=== PATIENT | female | born 1985 | race Caucasian/White ===

== ENCOUNTER 2023-08-20 20:43 | Emergency (ER) | payer OTHER, SELFPAY ==
[2023-08-20 21:04] VITALS: BP 138/98; PULSE 98; RESP 16; TEMP 36.6; O2SAT 99
[2023-08-20 21:25] LABS: Basophils Percent Auto 0.4 % (0.2-1.2); Hematocrit 41.5 % (37.0-47.0); Hemoglobin 13.3 g/dL (12.0-15.0); Immature Granulocyte Absolute 0.03 K/mm3 (0.00-0.031); Immature Granulocyte Percent A 0.3 % (0-0.5); Lymphocytes Absolute Auto 1.42 K/mm3 (0.9-3.2); Lymphocytes Percent Auto 12.5 % (18.3-44.2); Mean Corpuscular Hemoglobin 29.4 pg (26-34); Mean Corpuscular Volume 91.6 fl (80-100); Mean Platelet Volume 10.4 fl (7.4-10.4); Monocytes Absolute Auto 0.5 K/mm3 (0.1-0.6); Monocytes Percent Auto 4.2 % (2.6-8.5); Neutrophils Absolute Auto 9.4 K/mm3 (1.3-6.7); Neutrophils Percent Auto 82.6 % (45.5-73.1); Platelet Count Result 314 k/mm3 (150-375); Red Blood Count 4.53 M/mm3 (4.2-5.4); White Blood Count 11.3 K/mm3 (4.5-10.0)
[2023-08-20 21:39] LABS: Alanine Aminotransferase 22 U/L (6-35); Albumin Level 4.3 g/dL (3.5-5.1); Alkaline Phosphatase 105 U/L (38-126); Anion Gap 10 mmol/L (8-16); Aspartate Amino Transferase 23 U/L (14-36); Bilirubin,Total 0.5 mg/dL (0.2-1.3); Blood Urea Nitrogen 11 mg/dL (7-17); Calcium 9.1 mg/dL (8.4-10.2); Carbon Dioxide 20 mmol/L (22-30); Chloride 109 mmol/L (98-107); Estimated CRCL calculation 128 ml/min; Estimated Glomerular Filt Rate > 60; Glucose 104 mg/dL (65-110); Lipase 47 U/L (23-300); Potassium 3.7 mmol/L (3.4-5.0); Sodium 139 mmol/L (137-145)
[2023-08-20 23:14] VITALS: BP 148/93; PULSE 70; O2SAT 100
[2023-08-20 23:34] LABS: Appearance Urine Cloudy (Clear); Bacteria Urine Rare /hpf; Bilirubin Urine Negative (Negative); Blood Urine 2+ (Negative); Color Urine Yellow (Yellow); Glucose Urine UA Negative (Negative); Ketones Urine Negative (Negative); Leukocyte Esterase Ur Negative LEU/UL (Negative); Nitrate Urine Negative (Negative); Non Pathogenic Casts 0-2; Protein Urine Negative (Negative); RBC Urine 0-2 /hpf (0-2); Specific Grav Ur 1.022 (1.001-1.035); Squamous Epithelial Cell Urine Moderate /hpf (Few); Urobilinogen Urine 0.2 mg/dL (<2.0)
[2023-08-20 23:43] LABS: Add Urine Microscopic? YES
[2023-08-21 00:53] LABS: Pregnancy On Board Control Positive; Urine Pregnancy Test Negative
[2023-08-21] MEDS: diphenhydrAMINE HCl INJ 50 MG/ML VIAL 25 MG IV PUSH (01:08)
[2023-08-21] MEDS: KETOROLAC 30 MG/ML VIAL (*BKC) IV PUSH (01:08)
[2023-08-21] MEDS: PROCHLORPERAZINE EDISYLATE 10 MG/2 ML VIAL IV PUSH (01:08)
[2023-08-21] MEDS: SODIUM CHLORIDE 0.9% IV 1,000 ML 999 ML IV CONT (01:08)
--- NOTE | 2023-08-21 02:07 | ED.NAVMDI ---
HPI - Nausea/Vomiting/Diarrhea General Chief complaint: Nausea/Vomiting/Diarrhea Stated complaint: vomiting Time Seen by Provider: 08/21/23 00:06 History of Present Illness HPI Narrative: 38-year-old female reports for evaluation for migraine and vomiting since yesterday morning. Patient states she is having difficulty keeping any food or fluids down. She reports a history of migraines and states this headache is unchanged from her prior headaches. States her headache is all over describes as a dull ache. She denies vision changes, focal numbness or weakness, head trauma or syncope. She denies abdominal pain, urinary complaints, diarrhea, melena hematochezia, hematemesis, chest pain or shortness of breath. She does endorse generalized body aches. She is currently on her period, she started 3 days ago. Denies urinary frequency, urgency or dysuria. Related Data Allergies Allergy/AdvReac Type Severity Reaction Status Date / Time cephalexin Allergy Unknown unknown Verified 08/21/23 00:12 sulfamethizole Allergy Unknown unknown Verified 08/21/23 00:12 sulfamethoxazole Allergy Unknown Hives / Verified 08/21/23 00:12 Red Face trimethoprim Allergy Unknown unknown Verified 08/21/23 00:12 Review of Systems Review of Systems: CONSTITUTIONAL: Denies fever, chills, or sweats. EYES: Denies visual changes, redness, or discharge. ENT: Denies rhinorrhea, congestion, sore throat, or otalgia. CARDIOVASCULAR: Denies chest pain, palpitations, or edema. RESPIRATORY: Denies cough or dyspnea. GASTROINTESTINAL: See HPI GENITOURINARY: Denies dysuria or hematuria. SKIN: Denies rash or itching. MUSCULOSKELETAL: Denies back pain, joint pain, or myalgia. NEUROLOGIC: See HPI PSYCHIATRIC: Denies anxiety or depression. PMFSH Family History Family History Other Depression Family history of mental disorder Social History Social History Smoking status: Never smoker Exam Narrative: GENERAL: Well-appearing, well-nourished, and in no acute distress. Patient resting comfortably in exam bed. She is pleasant and conversational. HEAD: Normocephalic, atraumatic. EYES: PERRLA and EOMI. Horizontal resting nystagmus which patient states has been present since she was born. ENT: Nares clear, no rhinorrhea or epistaxis. Mucous membranes moist. Bilateral TMs are no nonbulging. Posterior pharynx without erythema or edema. No tonsillar hypertrophy. Uvula midline. NECK: Supple. No nuchal rigidity. CHEST: Clear to auscultation. No respiratory distress. HEART: Regular rate and rhythm. No murmur heard. Normal peripheral pulses. ABDOMEN: Soft, nontender, nondistended, normal active bowel sounds. No CVA tenderness. No guarding, rebound or rigidity. EXTREMITIES: Normal range of motion. No edema. SKIN: Warm, dry, no rash. NEURO: No focal deficits. Alert and oriented x3. Cranial nerves 2-12 intact. Strength 5/5 in BUE and BLE. Sensation intact throughout. Normal [id number]. No pronator drift. Course Vital Signs Vital signs: Vital Signs Temperature 97.9 F 08/20/23 21:04 Pulse Rate 98 08/20/23 21:04 Respiratory Rate 16 08/20/23 21:04 Blood Pressure 138/98 H 08/20/23 21:04 Pulse Oximetry 99 08/20/23 21:04 Oxygen Delivery Room Air 08/20/23 21:04 Temperature 97.9 F 08/20/23 21:04 Pulse Rate 70 08/20/23 23:14 Respiratory Rate 16 08/20/23 21:04 Blood Pressure 148/93 H 08/20/23 23:14 Pulse Oximetry 100 08/20/23 23:14 Oxygen Delivery Room Air 08/20/23 21:04 MDM - Nausea/Vomiting/Diarrhea MDM Narrative Medical decision making narrative: 38-year-old female with a history of migraines reports for evaluation for migraine headache and vomiting since this morning. See HPI for further history. Vitals significant for elevated blood pressure, otherwise unremarkable. She is well appearin
== END 2023-08-21 02:32 | disposition home or self-care (01) ==
PROVIDERS: Emergency Medicine; Emergency Provider Physician Assistant; PCP Family Medicine
DX: R51.9 Headache, unspecified (principal); R11.2 Nausea with vomiting, unspecified
CPT/HCPCS: 36415; 80053; 81001; 81025; 83690; 85025; 87086; 87088; 96361; 96374; 96375; 99284; J0780; J1200; J1885; J7030

== ENCOUNTER 2023-12-09 12:38 | Outpatient (CLI) | payer OTHER, SELFPAY ==
--- NOTE | ~2023-12-09 | XR_ITS ---
EXAMINATION: XR_[id number]_CR DATE: 12/09/2023 13:07 INDICATION: Neck pain. TECHNIQUE: 4 views of cervical spine were obtained. COMPARISON: None. FINDINGS: There is mild kyphosis of cervical spine. There is 5 degrees levocurvature of cervical spin e. Vertebral body heights and intervertebral disc heights are normal. There are endplate osteophytes at C5-C6. There is multilevel mild facet joint osteoarthritis. No central canal stenosis or preverteb ral soft tissue swelling. IMPRESSION: 1. Mild cervical spondylosis. Reviewed, dictated and finalized at location E. GER OF INTERNAL
--- NOTE | ~2023-12-09 | XR_ITS ---
EXAMINATION: XR lumbar spine 2-3V DATE: 12/09/2023 13:07 INDICATION: Lumbar disc herniation TECHNIQUE: Anteroposterior and lateral views of the lumbar spine, and cone-down lateral view of the l umbosacral junction were obtained. COMPARISON: None. FINDINGS: Bone alignment is normal. There is no fracture. There is mild loss of intervertebral disc s pace height at L2-3, L4-5, and L5-S1. The vertebral body heights are maintained. Small degenerative o steophytes project from the anterior endplates of multiple vertebral bodies. There is mild facet join t osteoarthritis at L5-S1. IMPRESSION: 1. Mild lumbar spondylosis without acute findings. Reviewed, dictated and finalized at location L. WHEELER
== END 2023-12-09 12:39 | disposition home or self-care (01) ==
LOC: CHSIMG 12:46
PROVIDERS: PCP Family Medicine
DX: M54.41 Lumbago with sciatica, right side (principal); G89.29 Other chronic pain; M51.26 Other intervertebral disc displacement, lumbar region; M43.02 Spondylolysis, cervical region; M43.06 Spondylolysis, lumbar region
CPT/HCPCS: 72040; 72100

== ENCOUNTER 2024-04-23 14:24 | Emergency (ER) | payer OTHER, SELFPAY ==
[2024-04-23 14:36] VITALS: BP 141/92; PULSE 100; RESP 18; TEMP 36.7; O2SAT 96
--- NOTE | 2024-04-23 15:44 | ED.GENADULT ---
HPI - General Adult General Chief complaint: Wound/Laceration Stated complaint: right pinkie laceration Time Seen by Provider: 04/23/24 14:54 History of Present Illness HPI narrative: 39-year-old female presenting to the emergency department for evaluation for laceration to her pinky. Patient was cutting cucumbers and patient inadvertently cut her pinky finger. Patient does have a flap laceration that is no longer bleeding. Patient states her tetanus is up-to-date. Related Data Allergies Allergy/AdvReac Type Severity Reaction Status Date / Time cephalexin Allergy Unknown unknown Verified 04/23/24 14:25 sulfamethizole Allergy Unknown unknown Verified 04/23/24 14:25 sulfamethoxazole Allergy Unknown Hives / Verified 04/23/24 14:25 Red Face trimethoprim Allergy Unknown unknown Verified 04/23/24 14:25 Review of Systems Review of Systems: All systems reviewed & are unremarkable except as noted in HPI and below PMFSH Family History Family History Other Depression Family history of mental disorder Social History Social History Smoking status: Never smoker Exam Narrative: APPEARANCE: Well appearing, no pain, no distress, well-nourished. HEAD: normocephalic, atraumatic. EYES: PERRLA/EOMI, conjunctivae clear. NOSE: Normal no drainage EARS:TMS clear with good light reflex. THROAT: Pharynx clear, no exudate. NECK: Supple. No adenopathy, no masses. RESPIRATORY: Airway patent, respirations nonlabored. Clear to auscultation bilaterally, no rales, rhonchi, wheezing. CARDIOVASCULAR: Regular rate and rhythm without murmurs rubs or gallops. ABDOMINAL: Soft, nontender, nondistended, normal bowel sounds MUSCULOSKELETAL: Flap laceration to right 5th finger Course Vital Signs Vital signs: Vital Signs Temperature 98.1 F 04/23/24 14:36 Pulse Rate 100 04/23/24 14:36 Respiratory Rate 18 04/23/24 14:36 Blood Pressure 141/92 H 04/23/24 14:36 Pulse Oximetry 96 04/23/24 14:36 Oxygen Delivery Room Air 04/23/24 14:36 Temperature 98.1 F 04/23/24 14:36 Pulse Rate 100 04/23/24 14:36 Respiratory Rate 18 04/23/24 14:36 Blood Pressure 141/92 H 04/23/24 14:36 Pulse Oximetry 96 04/23/24 14:36 Oxygen Delivery Room Air 04/23/24 14:36 Procedures Laceration Laceration 1: Site: upper extremity Side (If applicable): right Size (cm): 3 Description: flap Depth: simple, single layer Local Anesthetic: lidocaine 1% Amount of anesthesia used (mL): 3 Pre-repair: wound explored and irrigated ====== Skin Level ====== Skin layer closed with: prolene Size (cm): 6-0 Number of sutures: 3 Technique: simple, interrupted ====== Subcutaneous Layer ====== ====== Muscle Layer ====== ====== Tendon Layer ====== Medical Decision Making MDM Narrative Medical decision making narrative: 39-year-old female presenting to the emergency department for evaluation for laceration to her finger. Laceration was repaired as described above. Patient declined tetanus. Patient was updated on the treatment plan. Vital Signs Vital Signs: Vital Signs Temperature 98.1 F 04/23/24 14:36 Pulse Rate 100 04/23/24 14:36 Respiratory Rate 18 04/23/24 14:36 Blood Pressure 141/92 H 04/23/24 14:36 Pulse Oximetry 96 04/23/24 14:36 Oxygen Delivery Room Air 04/23/24 14:36 Temperature 98.1 F 04/23/24 14:36 Pulse Rate 100 04/23/24 14:36 Respiratory Rate 18 04/23/24 14:36 Blood Pressure 141/92 H 04/23/24 14:36 Pulse Oximetry 96 04/23/24 14:36 Oxygen Delivery Room Air 04/23/24 14:36 Discharge Plan Discharge Clinical Impression: Laceration Patient Disposition: Home, Self-Care Condition: Stable Instructions: Antibiotic Form, Laceration (ED) Additional Instruc
== END 2024-04-23 16:51 | disposition home or self-care (01) ==
PROVIDERS: Emergency Provider Emergency Medicine; PCP Family Medicine
DX: S61.216A Laceration without foreign body of right little finger without damage to nail, initial encounter (principal); W45.8XXA Other foreign body or object entering through skin, initial encounter
CPT/HCPCS: 12002; 99282

== ENCOUNTER 2024-08-18 17:14 | Emergency (ER) | payer OTHER, SELFPAY ==
[2024-08-18] VITALS (7 sets, daily range): BP systolic 111–138; BP diastolic 71–88; PULSE 68–93; RESP 13–20; TEMP 36.7; O2SAT 99–100
--- NOTE | ~2024-08-18 | CT_ITS ---
History: Dizziness PROCEDURE: CT head without contrast. COMPARISON: None TECHNIQUE: Axial imaging of the head performed from the skull base to the vertex without IV contrast. Sagittal a nd coronal reformations obtained. DLP: 605 mGy-cm FINDINGS: The ventricles are normal in size, shape and position. There is no mass, mass effect or midline shift. There is no abnormal extra-axial fluid collection or intracranial hemorrhage. Visualized paranasal sinuses are clear. The mastoid air cells are well aerated. No acute displaced fractures within the overlying cranium. Impression: No acute intracranial hemorrhage or suspicious mass effect. Reviewed, dictated and finalized at location A. [facility] C[facility] DIRECTOR Impression: No acute intracranial hemorrhage or suspicious mass effect.
--- NOTE | ~2024-08-18 | XR_ITS ---
CHEST RADIOGRAPH, PA AND LATERAL CLINICAL HISTORY: dizziness . COMPARISON: None available TECHNIQUE: PA and lateral views of the chest. FINDINGS The cardiomediastinal silhouette is unremarkable. The lungs are clear. Visualized osseous structures and soft tissues are unremarkable. IMPRESSION: No focal infiltrate or effusion. Reviewed, dictated and finalized at location A. K SPLITTER
--- NOTE | 2024-08-18 17:39 | ECG_ITS ---
Test Date: 2024-08-18 19:29:59 Measurements Intervals [place] Rate: 70 P: 44 RI: 136 QRS: 38 QRSD: 102 T: 56 QT: 364 QTc: 394 Interpretive Statements SINUS RHYTHM WITH SINUS ARRHYTHMIA BORDERLINE T WAVE ABNORMALITY- ANTERIOR LEADS BORDERLINE ECG No previous ECG available for comparison Electronically Signed On 08-19-2024 06:11:20 CPA TAX by Justino Madrigal D.O.
--- NOTE | 2024-08-18 17:41 | ED.DIZZY ---
HPI - Dizziness General Chief Complaint: Dizziness <Debbie Robertson PA-C - Last Filed: 08/18/24 17:43> Stated Complaint: dizzy <Debbie Robertson PA-C - Last Filed: 08/18/24 17:43> Time Seen by Provider: 08/18/24 17:41 <Debbie Robertson PA-C - Last Filed: 08/18/24 17:43> Focused HPI: This is a 39 year old female that presents to the ER for dizziness. Ongoing over the last couple of days. Reports some neck pain and a rash. Reports she feels off balance. GENERAL: Well-appearing, well-nourished, and in no acute distress. HEAD: Normocephalic, atraumatic. CHEST: Clear to auscultation. ?No respiratory distress. HEART: Regular rate and rhythm.? NEURO: ?Alert and oriented x3. Patient screened in triage and initial orders placed.? ?Additional care and disposition to be based upon?diagnostic testing and treatment. <Debbie Robertson PA-C - Last Filed: 08/18/24 17:43> History of Present Illness HPI Narrative: patient 39-year-old female presents emergency department chief complaint of dizziness. Patient reports the last several days she has been having nystagmus and reports that she has a rotational symptoms. The patient reports that she and most family members in her family have problems with nystagmus. The patient reports she is currently not seeing Neurology reports that she feels as though the room is spinning patient is our primary care provider and was given Antivert and reports that she did not feel well after receiving the Antivert. <Bruce Jarvis MD - Last Filed: 08/18/24 22:07> Related Data Allergies/Adverse Reactions: Allergies Allergy/AdvReac Type Severity Reaction Status Date / Time cephalexin Allergy Unknown unknown Verified 08/18/24 19:25 sulfamethizole Allergy Unknown unknown Verified 08/18/24 19:25 sulfamethoxazole Allergy Unknown Hives / Verified 08/18/24 19:25 Red Face trimethoprim Allergy Unknown unknown Verified 08/18/24 19:25 <Debbie Robertson PA-C - Last Filed: 08/18/24 17:43> Review of Systems Review of Systems: A 10 system review of systems was completed on the patient and is negative except for what is stated in the HPI. Nursing and ancillary documentation was reviewed. <Bruce Jarvis MD - Last Filed: 08/18/24 22:07> PMFSH Family History Family History: Family History Other Depression Family history of mental disorder <Debbie Robertson PA-C - Last Filed: 08/18/24 17:43> Social History Social History: Social History Smoking status: Never smoker <Debbie Robertson PA-C - Last Filed: 08/18/24 17:43> Exam Narrative: GENERAL: Well-appearing, well-nourished, and in no acute distress. HEAD: Normocephalic, atraumatic. EYES: PERRLA and EOMI. ENT: Nares clear, no rhinorrhea or epistaxis. Mucous membranes moist. NECK: Supple. CHEST: Clear to auscultation. No respiratory distress. HEART: Regular rate and rhythm. No murmur heard. Normal peripheral pulses. ABDOMEN: Soft, nontender, nondistended, normal active bowel sounds. EXTREMITIES: Normal range of motion. No edema. SKIN: Warm, dry, no rash. NEURO: No focal deficits. Alert and oriented x3. There is horizontal nystagmus present with both eyes worsened with movement of extraocular muscles PSYCH: Normal mood and affect. <Bruce Jarvis MD - Last Filed: 08/18/24 22:07> Course Vital Signs Vital signs: Vital Signs Temperature 36.7 C 08/18/24 17:34 Pulse Rate 93 08/18/24 17:34 Respiratory Rate 16 08/18/24 17:34 Blood Pressure 130/80 08/18/24 17:34 Pulse Oximetry 99 08/18/24 17:34 Oxygen Delivery Room Air 08/18/24 17:34 Temperature 36.7 C 08/18/24 19:28 Pulse Rate 70 08/18/24 21:31 Respiratory Rate 13 08/18/24 21:31 Blood Pressure 126/76 08/18/24 21:31 Pulse Oximetry 99 08/18/24 21:31 Oxygen Delivery Room Air 08/18/24 17:34 <Debbie Robertson PA-C - Last Filed: 08/18/24 17:43> Vital Signs Temperature 36.7 C 08/18/24 17:34 Pulse Rate 93 08/18/24 17:34 Respiratory Rate 16 08/18/24 17:34 Blood Pressure 130/80 08/18/24 17:34 Pulse Oximetry 99 08/18/24 17:34 Oxygen Delivery Room Air 08/18/24 17:34 Temperature 36.7 C 08/18/24 19:28 Pulse Rate 70 08/18/24 21:31 Respiratory Rate 13 08/18/24 21:31 Blood Pressure 126/76 08/18/24 21:31 Pulse Oximetry 99 08/18/24 21:31 Oxygen Delivery Room Air 08/18/24 17:34 <Bruce Jarvis MD - Last Filed: 08/18/24 22:07> MDM - Dizziness MDM Narrative Medical decision making narrative: differential diagnosis includes vertigo, <Bruce Jarvis MD - Last Filed: 08/18/24 22:07> Lab Data Result diagrams: 08/18/24 18:31 08/18/24 18:31 <Debbie Robertson PA-C - Last Filed: 08/18/24 17:43> Labs: Lab Results 08/18/24 Range/Units 18:31 WBC 11.6 H (4.5-10.0) K/mm3 RBC 4.62 (4.2-5.4) M/mm3 Hgb 14.0 (12.0-15.0) g/dL Hct 42.3 (37.0-47.0) % MCV 91.6 (80-100) fl MCH 30.3 (26-34) pg MCHC 33.1 (32-36) g/dl RDW 13.0 (11.5-14.5) % Plt Count 291 (150-375) k/mm3 MPV 10.6 H (7.4-10.4) fl Immature Gran % (Auto) 0.3 (0-0.5) % Neut % (Auto) 70.9 (45.5-73.1) % Lymph % (Auto) 22.5 (18.3-44.2) % [place] % (Auto) 5.9 (2.6-8.5) % Eos % (Auto) 0.0 (0-4.4) % Baso % (Auto) 0.4 (0.2-1.2) % Lymph # (Auto) 2.60 (0.9-3.2) K/mm3 [place] # (Auto) 0.7 H (0.1-0.6) K/mm3 Eos # (Auto) 0.0 (0-0.3) K/mm3 Baso # (Auto) 0.1 (0.0-0.1) K/mm3 Abs Immat Gran (auto) 0.03 (0.00-0.031) K/mm3 Absolute Neuts (auto) 8.2 H (1.3-6.7) K/mm3 Absolute Nucleated RBC 0.000 (0.0-0.012) K/mm3 Nucleated RBC % 0.0 (0.0-0.2) % Sodium 136 L (137-145) mmol/L Potassium 4.0 (3.4-5.0) mmol/L Chloride 102 (98-107) mmol/L Carbon Dioxide 24 (22-30) mmol/L Anion Gap 10 (4-12) mmol/L BUN 10 (7-17) mg/dL Creatinine 0.60 L (0.7-1.0) mg/dL Estim Creat Clear Calc Not Reportable Estimated GFR > 60 (59 - ) Glucose 85 (65-110) mg/dL Calcium 9.2 (8.4-10.2) mg/dL Total Bilirubin 0.4 (0.2-1.3) mg/dL AST 25 (14-36) U/L ALT 25 (6-35) U/L Alkaline Phosphatase 87 (38-126) U/L Total Protein 8.0 (6.3-8.2) g/dL Albumin 4.5 (3.5-5.1) g/dL <Debbie Robertson PA-C - Last Filed: 08/18/24 17:43> Lab Results 08/18/24 Range/Units 18:31 WBC 11.6 H (4.5-10.0) K/mm3 RBC 4.62 (4.2-5.4) M/mm3 Hgb 14.0 (12.0-15.0) g/dL Hct 42.3 (37.0-47.0) % MCV 91.6 (80-100) fl MCH 30.3 (26-34) pg MCHC 33.1 (32-36) g/dl RDW 13.0 (11.5-14.5) % Plt Count 291 (150-375) k/mm3 MPV 10.6 H (7.4-10.4) fl Immature Gran % (Auto) 0.3 (0-0.5) % Neut % (Auto) 70.9 (45.5-73.1) % Lymph % (Auto) 22.5 (18.3-44.2) % [place] % (Auto) 5.9 (2.6-8.5) % Eos % (Auto) 0.0 (0-4.4) % Baso % (Auto) 0.4 (0.2-1.2) % Lymph # (Auto) 2.60 (0.9-3.2) K/mm3 [place] # (Auto) 0.7 H (0.1-0.6) K/mm3 Eos # (Auto) 0.0 (0-0.3) K/mm3 Baso # (Auto) 0.1 (0.0-0.1) K/mm3 Abs Immat Gran (auto) 0.03 (0.00-0.031) K/mm3 Absolute Neuts (auto) 8.2 H (1.3-6.7) K/mm3 Absolute Nucleated RBC 0.000 (0.0-0.012) K/mm3 Nucleated RBC % 0.0 (0.0-0.2) % Sodium 136 L (137-145) mmol/L Potassium 4.0 (3.4-5.0) mmol/L Chloride 102 (98-107) mmol/L Carbon Dioxide 24 (22-30) mmol/L Anion Gap 10 (4-12) mmol/L BUN 10 (7-17) mg/dL Creatinine 0.60 L (0.7-1.0) mg/dL Estim Creat Clear Calc Not Reportable Estimated GFR > 60 (59 - ) Glucose 85 (65-110) mg/dL Calcium 9.2 (8.4-10.2) mg/dL Total Bilirubin 0.4 (0.2-1.3) mg/dL AST 25 (14-36) U/L ALT 25 (6-35) U/L Alkaline Phosphatase 87 (38-126) U/L Total Protein 8.0 (6.3-8.2) g/dL Albumin 4.5 (3.5-5.1) g/dL <Bruce Jarvis MD - Last Filed: 08/18/24 22:07> Discharge Plan Discharge Clinical Impression: Vertigo <Debbie Robertson PA-C - Last Filed: 08/18/24 17:43> Patient Disposition: Home, Self-Care <Debbie Robertson PA-C - Last Filed: 08/18/24 17:43> Condition: Stable <Debbie Robertson PA-C - Last Filed: 08/18/24 17:43> Instructions: Antibiotic Form, Vertigo (ED), Dizziness (ED) <Debbie Robertson PA-C - Last Filed: 08/18/24 17:43> Prescriptions: New diazepam [Valium] 2 mg tablet 2 mg PO BID PRN (Reason: dizziness or vertigo) 7 Days Qty: 14 0RF No Action ondansetron 4 mg tablet,disintegrating 4 mg PO Q8H Qty: 14 0RF <Debbie Robertson PA-C - Last Filed: 08/18/24 17:43> Follow-up/Referrals: Domonique,Jimmy Sheppard MD [Primary Care Provider] - <Debbie Robertson PA-C - Last Filed: 08/18/24 17:43> Time of Disposition: 22:06 <Debbie Robertson PA-C - Last Filed: 08/18/24 17:43> 22:06 <Bruce Jarvis MD - Last Filed: 08/18/24 22:07>
[2024-08-18 18:44] LABS: Basophils Absolute Auto 0.1 K/mm3 (0.0-0.1); Basophils Percent Auto 0.4 % (0.2-1.2); Hematocrit 42.3 % (37.0-47.0); Immature Granulocyte Absolute 0.03 K/mm3 (0.00-0.031); Immature Granulocyte Percent A 0.3 % (0-0.5); Lymphocytes Percent Auto 22.5 % (18.3-44.2); Mean Corpuscular HGB Conc 33.1 g/dl (32-36); Mean Corpuscular Hemoglobin 30.3 pg (26-34); Mean Corpuscular Volume 91.6 fl (80-100); Mean Platelet Volume 10.6 fl (7.4-10.4); Monocytes Absolute Auto 0.7 K/mm3 (0.1-0.6); Monocytes Percent Auto 5.9 % (2.6-8.5); Neutrophils Absolute Auto 8.2 K/mm3 (1.3-6.7); Neutrophils Percent Auto 70.9 % (45.5-73.1); Platelet Count Result 291 k/mm3 (150-375); Red Blood Count 4.62 M/mm3 (4.2-5.4); White Blood Count 11.6 K/mm3 (4.5-10.0)
[2024-08-18 18:55] LABS: Alanine Aminotransferase 25 U/L (6-35); Albumin Level 4.5 g/dL (3.5-5.1); Alkaline Phosphatase 87 U/L (38-126); Anion Gap 10 mmol/L (4-12); Aspartate Amino Transferase 25 U/L (14-36); Bilirubin,Total 0.4 mg/dL (0.2-1.3); Blood Urea Nitrogen 10 mg/dL (7-17); Calcium 9.2 mg/dL (8.4-10.2); Carbon Dioxide 24 mmol/L (22-30); Chloride 102 mmol/L (98-107); Estimated Glomerular Filt Rate > 60; Glucose 85 mg/dL (65-110); Sodium 136 mmol/L (137-145)
[2024-08-18] MEDS: MECLIZINE HCL 25 MG TABLET PO (19:43)
[2024-08-18] MEDS: SODIUM CHLORIDE 0.9% IV 1,000 ML 999 ML IV CONT (19:44)
[2024-08-18] MEDS: diazePAM INJ (*CRX) 10 MG/2 ML SYRINGE 2.5 MG IV PUSH (19:44)
--- NOTE | 2024-08-18 21:40 | PC.NURSE ---
2139-PATIENT UP WITH STEADY GAIT. PATIENT STATES SHE FEELS SO MUCH BETTER AND DIZZINESS IS GONE .
[2024-08-21 10:02] LABS: BEDSIDEPREGUCG Negative (Negative)
== END 2024-08-18 22:18 | disposition home or self-care (01) ==
PROVIDERS: Physician Assistant; Emergency Provider Emergency Medicine; PCP Family Medicine
DX: R42 Dizziness and giddiness (principal); R94.31 Abnormal electrocardiogram [ECG] [EKG]
CPT/HCPCS: 36415; 70450; 71046; 80053; 81025; 85025; 93005; 96361; 96374; 99284; A9270; J3360; J7030